=== PATIENT | female | born 1930 | race Caucasian/White ===

== ENCOUNTER → 2016-10-08 | Outpatient (CLI) | payer MEDICARE, BC ==
--- NOTE | 2016-10-08 11:57 | XR ---
EXAMINATION TYPE: XR chest 2V DATE OF EXAM: 10/08/2016 COMPARISON: 09/19/2015 HISTORY: History of renal cell carcinoma. Follow-up examination. TECHNIQUE: Frontal and lateral views of the chest are obtained. FINDINGS: Partial intrathoracic stomach/large hiatal hernia is seen in the retrocardiac airspace. Th ere is tortuosity of the ascending and descending thoracic aorta. There is eventration of the right h emidiaphragm. Lungs are hyperinflated with slight flattening of the diaphragm on the lateral image. T here is generalized osseous demineralization. Left midlung platelike atelectasis is noted. There is i ncreased anterior posterior diameter of the chest on the lateral image and biapical lucency. IMPRESSION: 1. No acute cardiopulmonary process. 2. Radiographic sequela of COPD. 3. Partial intrathoracic stomach/large hiatal hernia, unchanged from the prior. 4. Chronic left lower lung subsegmental atelectasis.
--- NOTE | 2016-10-08 12:01 | XR ---
EXAMINATION TYPE: XR KUB DATE OF EXAM: 10/08/2016 CLINICAL DATA: 86-year-old female yearly checkup, stone., [facility] COMPARISON: 09/19/2015 FINDINGS: There is a large underlying hiatal hernia. Cholecystectomy clips. Densely calcified abdominal aorta. A couple rounded calcifications in the left mid abdomen measuring up to 5 mm are unchanged. Moderate overall stool burden. No dilated small bowel or air-fluid levels. IMPRESSION: 1. Moderate stool burden.No evidence of bowel obstruction or free intraperitoneal air. 2. Stable couple calcifications in the left mid abdomen measuring up to 5 mm. 3. Large hiatal hernia.
== END ==
LOC: RADXRMAIN 11:25
PROVIDERS: ATTEND Urology
DX: C64.9 Malignant neoplasm of unspecified kidney, except renal pelvis (principal); N28.89 Other specified disorders of kidney and ureter; J98.11 Atelectasis
CPT/HCPCS: 71020; 74000